=== PATIENT | female | born 1980 | race American Indian/Alaskan Native ===

== ENCOUNTER 2016-09-09 21:35 | Emergency (ER) | payer MEDICARE ==
[2016-09-10 01:31] LABS: Alanine Aminotransferase 20 units/L (7-56); Albumin 4.1 g/dL (3.9-5); Alkaline Phosphatase 88 units/L (35-129); Anion Gap 19 mmol/L; BUN/Creatinine Ratio 18.33; Bilirubin,Total 0.2 mg/dL (0.1-1.2); Blood Urea Nitrogen 11 mg/dL (7-17); Calcium 9.6 mg/dL (8.4-10.2); Carbon Dioxide 26 mmol/L (22-30); Chloride 97.3 mmol/L (98-107); Glucose 132 mg/dL (65-100); Lipase 23 units/L (13-60); Sodium 138 mmol/L (137-145); Total Protein 8.1 g/dL (6.3-8.2)
[2016-09-10 01:35] LABS: Basophils % (Auto) 0.2 % (0.0-1.8); Eosinophils % (Auto) 1.3 % (0.0-4.3); Mean Corpuscular HGB Conc 31 % (30-34); Platelet Count 205 K/mm3 (140-440); Red Blood Count 6.01 M/mm3 (3.65-5.03); White Blood Count 7.7 K/mm3 (4.5-11.0)
[2016-09-10 01:36] LABS: Hematocrit 39.8 % (30.3-42.9); Hemoglobin 12.2 gm/dl (10.1-14.3); Mean Corpuscular Hemoglobin 20 pg (28-32); Mean Corpuscular Volume 66 fl (79-97)
[2016-09-10] MEDS ORDERED: MORPHINE IV ONE (09:09)
[2016-09-10] MEDS ORDERED: ZOFRAN IV ONE (09:09)
[2016-09-10] MEDS ORDERED: NACL 0.9% 1000 ML 1,000 ML IV ONE (09:09)
--- NOTE | 2016-09-10 09:14 | Emergency Department Report ---
HPI - General Chief Complaint: Abdominal Pain Time Seen by Provider: 09/10/16 08:55 - HPI HPI: Room 24 The patient is 36-year-old female presenting with a chief complaint of abdominal pain. Patient states for the past 3 days she has had right-sided abdominal pain. Patient describes the pain as cramping in nature states that it was initially intermittent but has now become constant. Patient denies dysuria or hematuria. Patient admits to subjective fever and anorexia. Patient admits to nausea but denies vomiting. Patient currently gives her pain a score of 10/10 Location: Right abdomen Duration: 3 days Quality: Cramping Severity: 10/10 Modifying factors: [see above] Context: [see above] Mode of transportation: [not driving] ED Past Medical Hx - Past Medical History Previous Medical History?: Yes Hx Hypertension: Yes Hx Diabetes: Yes Hx Deep Vein Thrombosis: Yes Hx GERD: Yes Hx Arthritis: Yes Hx Seizures: Yes Hx Asthma: Yes Additional medical history: sleep apnea. Hypothyroidism. MORBID OBESITY - Surgical History Past Surgical History?: Yes Hx Cholecystectomy: Yes Additional Surgical History: R knee. carpal tunnel. hysterctomy. PARATHYROID - Family History Family history: no significant - Social History Smoking Status: Never Smoker Substance Use Type: Alcohol (occasional) - Medications Home Medications: Home Medications Medication Instructions Recorded Confirmed Last Taken Type Levothyroxine [Synthroid] 1 tab PO DAILY 03/16/14 01/27/16 01/27/16 History Metoprolol [Lopressor TAB] 1 tab PO DAILY 03/16/14 01/27/16 01/27/16 History metFORMIN [Glucophage] 1 tab PO BID 03/16/14 01/27/16 01/27/16 History Gabapentin [Neurontin] 600 mg PO Q8H #90 tablet 10/16/14 01/27/16 01/27/16 Rx Liraglutide [Victoza 2-Damion] 0.6 mg SUB-Q DAILY 01/27/16 01/27/16 01/27/16 History ALBUTEROL Inhaler [ProAir HFA 2 puff INHALATION PRN #1 inha 02/11/16 Unknown Rx Inhaler] Promethazine [Phenergan TAB] 25 mg PO Q6HR PRN #14 tab 09/10/16 Unknown Rx traMADol [Ultram] 50 mg PO Q6HR PRN #14 tablet 09/10/16 Unknown Rx ED Review of Systems ROS: Stated complaint: ABD PAIN Other details as noted in HPI Comment: All other systems reviewed and negative Constitutional: fever (subjective), other (anorexia). denies: chills Eyes: denies: eye pain, eye discharge, vision change ENT: denies: ear pain, throat pain Respiratory: denies: cough, shortness of breath, wheezing Cardiovascular: denies: chest pain, palpitations Endocrine: no symptoms reported Gastrointestinal: abdominal pain, nausea. denies: vomiting Genitourinary: denies: urgency, dysuria, discharge Musculoskeletal: denies: back pain, joint swelling, arthralgia Skin: denies: rash, lesions Neurological: denies: headache, weakness, paresthesias Psychiatric: denies: anxiety, depression Hematological/Lymphatic: denies: easy bleeding, easy bruising Physical Exam - Physical Exam Vital Signs: Vital Signs 09/09/16 09/10/16 09/10/16 22:20 02:46 06:23 Temperature 98.5 F Pulse Rate 116 H 83 83 Respiratory 20 18 18 Rate Blood Pressure 143/104 147/99 Blood Pressure 157/106 [Right] O2 Sat by Pulse 98 98 100 Oximetry 09/10/16 09/10/16 08:18 08:19 Temperature Pulse Rate 78 Respiratory 18 16 Rate Blood Pressure Blood Pressure 119/69 [Right] O2 Sat by Pulse 100 100 Oximetry Physical Exam: GENERAL: The patient is well-developed well-nourished female lying on stretcher not appearing to be in acute distress. [] HEENT: Normocephalic. Atraumatic. Extraocular motions are intact. Patient has moist mucous membranes. NECK: Supple. Trachea midline CHEST/LUNGS: Clear to auscultation. There is no respiratory distress noted. HEART/CARDIOVASCULAR: Regular. There is no tachycardia. There is no gallop rub or murmur. ABDOMEN: Abdomen is soft, with discomfort to palpation in the right upper and right lower quadrants. There is no rebound or guarding. Patient has normal bowel sounds. There is no abdominal distention. SKIN: There is no rash. There is no edema. There is no diaphoresis. NEURO: The patient is awake, alert, and oriented. The patient is cooperative. The patient has normal speech MUSCULOSKELETAL: There is no evidence of acute injury. ED Course Vital Signs 09/09/16 09/10/1609/10/17 22:20 02:46 06:23 Temperature 98.5 F Pulse Rate 116 H 83 83 Respiratory 20 18 18 Rate Blood Pressure 143/104 147/99 Blood Pressure 157/106 [Right] O2 Sat by Pulse 98 98 100 Oximetry 09/10/16 09/10/16 08:18 08:19 Temperature Pulse Rate 78 Respiratory 18 16 Rate Blood Pressure Blood Pressure 119/69 [Right] O2 Sat by Pulse 100 100 Oximetry ED Medical Decision Making - Lab Data Result diagrams: 09/10/16 00:54 09/10/16 00:54 Laboratory Tests 09/10/16 09/10/16 09/10/16 00:54 00:54 Unknown WBC 7.7 RBC 6.01 H Hgb 12.2 Hct 39.8 MCV 66 L MCH 20 L MCHC 31 RDW 18.0 H Plt Count 205 Lymph % (Auto) 30.9 Cross % (Auto) 7.7 H Eos % (Auto) 1.3 Baso % (Auto) 0.2 Lymph # 2.4 Cross # 0.6 Eos # 0.1 Baso # 0.0 Seg Neutrophils % 59.9 Seg Neutrophils # 4.6 Sodium 138 Potassium 4.0 Chloride 97.3 L Carbon Dioxide 26 Anion Gap 19 BUN 11 Creatinine 0.6 L Estimated GFR > 60 BUN/Creatinine Ratio 18.33 Glucose 132 H Calcium 9.6 Total Bilirubin 0.2 AST 18 ALT 20 Alkaline Phosphatase 88 Total Protein 8.1 Albumin 4.1 Albumin/Globulin Ratio 1.0 Lipase 23 Urine Color Yellow Urine Turbidity Clear Urine pH 5.0 Ur Specific Holmes 1.027 Urine Protein <15 mg/dl Urine Glucose (UA) Neg Urine Ketones Neg Urine Blood Neg Urine Nitrite Neg Urine Bilirubin Neg Urine Urobilinogen < 2.0 Ur Leukocyte Esterase Neg Urine WBC (Auto) 3.0 Urine RBC (Auto) 3.0 U Epithel Cells (Auto) 18.0 H Urine Mucus Few - Radiology Data Radiology results: report reviewed (CT abdomen and pelvis), image reviewed (CT abdomen and pelvis) CT abdomen and pelvis (read by radiologist)-no acute findings or interval changes. A small umbilical hernia containing fat are stable. Status post cholecystectomy and hysterectomy. The appendix is not definitely identified and there is no radiographic evidence of appendicitis. The uterus has been removed. There is are no pelvic masses or abnormal fluid collections. No free air seen. Small umbilical hernia containing fat is again noted, unchanged. - Differential Diagnosis appendicitis, ovarian cyst, gastritis Critical care attestation.: If time is entered above; I have spent that time in minutes in the direct care of this critically ill patient, excluding procedure time. ED Disposition Clinical Impression: Acute abdominal pain, Nausea Disposition: DISCHARGED TO HOME OR SELFCARE Is pt being admited?: No Does the pt Need Aspirin: No Condition: Stable Instructions: Abdominal Pain (ED) Additional Instructions: Return to the emergency department immediately should you develop worsening symptoms, fever, inability to tolerate food or liquid or any other concerns. 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 Please follow up with him for further evaluation) Time of Disposition: 11:38
[2016-09-10 09:58] LABS: Bilirubin,Urine NEG (Negative); Blood,Urine NEG (Negative); Ketones,Urine NEG (Negative); Leukocyte Esterase,Urine NEG (Negative); Mucus,Urine FEW /HPF; Nitrite,Urine NEG (Negative); Protein,Urine <15 mg/dL mg/dL (Negative); Urobilinogen,Urine < 2.0 mg/dL (<2.0)
--- NOTE | 2016-09-10 11:20 | Cat Scan Report ---
CT of the abdomen and pelvis with IV contrast. History: Right-sided abdominal pain. Findings: The study is severely limited by the patient's body habitus resulting in very poor quality images. Comparison is made to previous study on January 27, 2016. Within these limits, the spleen, pancreas, and kidneys appear normal. The liver is enlarged with no focal abnormalities. This finding is stable. The gallbladder has been removed. The appendix is not definite identified, but there is no radiographic evidence of appendicitis. The uterus is been removed. There no pelvic masses or abnormal fluid collections. No free air is seen. Small umbilical hernia containing fat is again noted, unchanged. Impression: No acute findings or interval changes with above noted significant technical limitations. A small umbilical hernia containing fat is stable. Status post cholecystectomy and hysterectomy.
[2016-09-10 11:29] VITALS: BP 114/73
== END 2016-09-10 11:38 | disposition home or self-care (01) ==
LOC: ED 21:35
DX: R10.31 Right lower quadrant pain (principal); R10.11 Right upper quadrant pain; R11.0 Nausea; I10 Essential (primary) hypertension; E11.9 Type 2 diabetes mellitus without complications; K21.9 Gastro-esophageal reflux disease without esophagitis; I82.409 Acute embolism and thrombosis of unspecified deep veins of unspecified lower extremity; M19.90 Unspecified osteoarthritis, unspecified site; J45.909 Unspecified asthma, uncomplicated; R56.9 Unspecified convulsions; E03.9 Hypothyroidism, unspecified; E66.01 Morbid (severe) obesity due to excess calories; Z90.710 Acquired absence of both cervix and uterus; G47.30 Sleep apnea, unspecified
CPT/HCPCS: 36415; 74177; 80053; 81001; 83690; 85025; 96361; 96374; 96375; 99284; J2270; J2405; J7030; Q9967

== ENCOUNTER 2018-02-14 10:24 | Emergency (ER) | payer MEDICARE ==
[2018-02-14 10:36] VITALS: BP 118/79
[2018-02-14 13:51] LABS: Hematocrit 33.4 % (30.3-42.9); Hemoglobin 10.5 gm/dl (10.1-14.3); Mean Corpuscular HGB Conc 31 % (30-34); Mean Corpuscular Hemoglobin 21 pg (28-32); Mean Corpuscular Volume 66 fl (79-97); Platelet Count 218 K/mm3 (140-440); Red Blood Count 5.05 M/mm3 (3.65-5.03); Red Cell Distribution Width 18.3 % (13.2-15.2)
[2018-02-14 13:52] LABS: Basophils % (Auto) 0.5 % (0.0-1.8); Eosinophils # (Auto) 0.2 K/mm3 (0.0-0.4); Lymphocytes # (Auto) 2.9 K/mm3 (1.2-5.4); Lymphocytes % (Auto) 32.5 % (13.4-35.0); Monocytes # (Auto) 0.5 K/mm3 (0.0-0.8); Monocytes % (Auto) 5.2 % (0.0-7.3)
--- NOTE | 2018-02-14 13:55 | Emergency Department Report ---
ED Rash HPI - HPI Chief Complaint: Skin Rash Stated Complaint: RASH ALL OVER Time Seen by Provider: 02/14/18 12:30 Duration: 2 Days Location: Chest, Upper Extremities, Lower Extremities Suspected Cause: Unknown Rash Symptoms: Yes Itching, No Facial Swelling, No Tongue/Oral Swelling, No Breathing Difficulties, No Choking Sensation, No Wheezing/Dyspnea, No Peeling, No Blistering, No Fever, No Lightheaded, No Malaise, No Myalgias Severity: mild Other History: This is a 37-year-old female nontoxic, well nourished in appearance, no acute signs of distress presents to the ED with c/o of diffuse rash that started 3 days. Patient describes rash as itching and painful after itching it. Patient denies any fever, chills, headache, sore throat, stiff neck , nausea, vomiting, chest pain, shortness of breathe, breathing, hoarseness, facial swelling, develop pain, numbness or tingling. Patient denies any allergies or significant past medical history. ED Review of Systems ROS: Stated complaint: RASH ALL OVER Other details as noted in HPI Constitutional: denies: chills, fever Eyes: denies: eye pain, eye discharge, vision change ENT: denies: ear pain, throat pain Respiratory: denies: cough, shortness of breath, wheezing Cardiovascular: denies: chest pain, palpitations Endocrine: no symptoms reported Gastrointestinal: denies: abdominal pain, nausea, diarrhea Genitourinary: denies: urgency, dysuria, discharge Musculoskeletal: denies: back pain, joint swelling, arthralgia Skin: rash. denies: lesions Neurological: denies: headache, weakness, paresthesias Psychiatric: denies: anxiety, depression Hematological/Lymphatic: denies: easy bleeding, easy bruising ED Past Medical Hx - Past Medical History Hx Hypertension: Yes Hx Diabetes: Yes Hx Deep Vein Thrombosis: Yes Hx GERD: Yes Hx Arthritis: Yes Hx Seizures: Yes Hx Asthma: Yes Additional medical history: sleep apnea. Hypothyroidism. MORBID OBESITY - Surgical History Hx Cholecystectomy: Yes Additional Surgical History: R knee. carpal tunnel. hysterctomy. PARATHYROID - Social History Smoking Status: Never Smoker Substance Use Type: Alcohol (occasional) - Medications Home Medications: Home Medications Medication Instructions Recorded Confirmed Last Taken Type Levothyroxine [Synthroid] 1 tab PO DAILY 1001/27/16 01/27/16 History Metoprolol [Lopressor TAB] 1 tab PO DAILY 03/16/14 01/27/16 01/27/16 History metFORMIN [Glucophage] 1 tab PO BID 03/16/14 01/27/16 01/27/16 History Gabapentin [Neurontin] 600 mg PO Q8H #90 tablet 10/16/14 01/27/16 01/27/16 Rx Liraglutide [Victoza 2-Damion] 0.6 mg SUB-Q DAILY 01/27/16 01/27/16 01/27/16 History ALBUTEROL Inhaler (OR & NICU) 2 puff INHALATION PRN #1 inha 02/11/16 Unknown Rx [ProAir HFA Inhaler] Promethazine [Phenergan TAB] 25 mg PO Q6HR PRN #14 tab 09/10/16 Unknown Rx traMADol [Ultram] 50 mg PO Q6HR PRN #14 tablet 09/10/16 Unknown Rx Prednisone [predniSONE 10 mg 10 mg PO .TAPER #1 tab.ds.pk 02/14/18 Unknown Rx (6-Day Pack, 21 Tabs)] cephALEXin [Keflex] 500 mg PO Q8HR #21 cap 02/14/18 Unknown Rx diphenhydrAMINE [Benadryl CAP] 25 mg PO Q6HR PRN #20 capsule 02/14/18 Unknown Rx Rash Exam - Exam General: Vital signs noted. No distress. Alert and acting appropriately. HEENT: No Periorbital Edema, No Conjuctival Injection, No Chemosis, No Perioral Edema, No Tongue Edema, No Uvular Edema, No Compromised Airway, No Drooling Lungs: Yes Good Air Exchange (Normal Breath Sounds), No Wheezes, No Ronchi, No Stridor, No Cough, No Labored Respirations, No Retractions, No Use of Accessory Muscles, No Other Abnormal Lung Sounds Heart: Yes Regular, No Murmur Skin: Yes Maculopapular Rash, No Urticarial Rash, No Morbilliform rash, No Bulla (e), No Excoriations, No Weeping, No Tenderness, No Erythema, No Edema, No Encrustations Other: Positive: Abdomen Normal, Neurologic Normal, Musculoskeletal Normal ED Course Vital Signs 02/14/18 10:33 Temperature 97.9 F Pulse Rate 78 Respiratory 20 Rate Blood Pressure 118/79 O2 Sat by Pulse 96 Oximetry - Reevaluation(s) Reevaluation #1: 02/14/18 13:57 Patient is speaking in full sentences with no signs of distress noted. ED Medical Decision Making - Lab Data Result diagrams: 02/14/18 13:30 02/14/18 13:30 - Medical Decision Making This is a 37-year-old female that presents with maculopapular rash to unknown source. Patient is stable was examined by me. There is no facial swelling. No angioedema. There is no cellulitis. No hoarseness. Labs obtained and unremarkable. no tonsillitis. I will treat patient empirically with Keflex. Patient is discharged also with prednisone and Benadryl. Patient was referred to Follow-up with a primary care doctor in 3-5 days or if symptoms worsen and continue return to emergency room as soon as possible. At time of discharge, the patient does not seem toxic or ill in appearance. No acute signs of distress noted. Patient agrees to discharge treatment plan of care. No further questions noted by the patient. Critical care attestation.: If time is entered above; I have spent that time in minutes in the direct care of this critically ill patient, excluding procedure time. ED Disposition Clinical Impression: Maculopapular rash, generalized Disposition: DC-01 TO HOME OR SELFCARE Is pt being admited?: No Does the pt Need Aspirin: No Condition: Stable Instructions: Acute Rash (ED), Diphenhydramine (By mouth) Additional Instructions: Follow-up with a primary care/telephone installer doctor in 3-5 days or if symptoms worsen and continue return to emergency room as soon as possible. Prescriptions: cephALEXin [Keflex] 500 mg PO Q8HR #21 cap diphenhydrAMINE [Benadryl CAP] 25 mg PO Q6HR PRN #20 capsule PRN Reason: Itching Prednisone [predniSONE 10 mg (6-Day Pack, 21 Tabs)] 10 mg PO .TAPER #1 tab.ds.pk Referrals: PRIMARY CARE, [Primary Care Provider] - 3-5 Days LATOYA LASSITER MD [Staff Physician] - 3-5 Days [facility] [Outside] - 3-5 Days [facility] [Outside] - 3-5 Days Forms: Work/School Release Form(ED)
[2018-02-14 13:59] LABS: INR 0.94 (0.87-1.13)
[2018-02-14 14:00] LABS: Partial Thromboplastin Time 34.2 Sec. (24.2-36.6)
[2018-02-14 14:06] LABS: BUN/Creatinine Ratio 10; Blood Urea Nitrogen 6 mg/dL (7-17); Hemolysis Index 7
== END 2018-02-14 14:22 | disposition home or self-care (01) ==
LOC: ED 10:24
DX: R21 Rash and other nonspecific skin eruption (principal); I10 Essential (primary) hypertension; E11.9 Type 2 diabetes mellitus without complications; K21.9 Gastro-esophageal reflux disease without esophagitis; M19.90 Unspecified osteoarthritis, unspecified site; J45.909 Unspecified asthma, uncomplicated; E03.9 Hypothyroidism, unspecified; E66.01 Morbid (severe) obesity due to excess calories; Z86.718 Personal history of other venous thrombosis and embolism; Z90.49 Acquired absence of other specified parts of digestive tract
CPT/HCPCS: 36415; 80048; 85025; 85610; 85730; 99283

== ENCOUNTER 2018-03-18 10:53 | Emergency (ER) | payer MEDICARE ==
[2018-03-18 15:26] LABS: BUN/Creatinine Ratio 22; Blood Urea Nitrogen 13 mg/dL (7-17); Calcium 8.9 mg/dL (8.4-10.2); Hemolysis Index 9
--- NOTE | 2018-03-18 16:45 | XRay Report ---
FINAL REPORT EXAM: XR CHEST ROUTINE 2V HISTORY: cough TECHNIQUE: Frontal and lateral chest radiographs. PRIORS: 03/13/2018. FINDINGS: The cardiomediastinal silhouette is normal. No focal consolidation. A nonspecific focal rounded opacity projects over the medial aspect of the right lower lung measuring 2.5 centimeters. No pleural effusion. No pneumothorax. No acute osseous abnormality. IMPRESSION: Nonspecific rounded nodular opacity projecting over the right lower lung may represent a pulmonary nodule versus object outside of the patient. Recommend further evaluation with chest CT.
[2018-03-18 17:15] LABS: Hematocrit 33.6 % (30.3-42.9); Hemoglobin 10.7 gm/dl (10.1-14.3); Mean Corpuscular HGB Conc 32 % (30-34); Mean Corpuscular Hemoglobin 21 pg (28-32); Mean Corpuscular Volume 67 fl (79-97); Platelet Count 239 K/mm3 (140-440); Red Blood Count 5.05 M/mm3 (3.65-5.03); Red Cell Distribution Width 18.3 % (13.2-15.2)
[2018-03-18 17:30] LABS: INR 0.92 (0.87-1.13)
[2018-03-18 17:31] LABS: Partial Thromboplastin Time 32.6 Sec. (24.2-36.6)
--- NOTE | 2018-03-18 17:50 | Emergency Department Report ---
ED Shortness of Breath HPI - General Chief Complaint: Dyspnea/Respdistress Stated Complaint: SOB/COUGHING/CONGESTION/WHEEZING Time Seen by Provider: 03/18/18 14:09 Source: patient Mode of arrival: Ambulatory Limitations: No Limitations - History of Present Illness Initial Comments: 35-year-old female with history of asthma presents to ED with cough, congestion , shortness of breath. Patient states symptoms began last week. States she was seen in ED 6 days ago given prescription for antibiotics, albuterol, prednisone Dosepak. Patient states she still having shortness of breath and productive cough. Patient denies fever. MD Complaint: shortness of breath, cough -: week(s) (1) Severity: moderate Improves With: bronchodilators Worsens With: lying flat, exertion, coughing Known History Of: asthma Context: recent URI Associated Symptoms: sputum production Treatments Prior to Arrival: bronchodilator - Related Data Home Medications Medication Instructions Recorded Confirmed Last Taken Levothyroxine [Synthroid] 1 tab PO DAILY 03/16/14 01/27/16 01/27/16 Metoprolol [Lopressor TAB] 1 tab PO DAILY 03/16/14 01/27/16 01/27/16 metFORMIN [Glucophage] 1 tab PO BID 03/16/14 01/27/16 01/27/16 Liraglutide [Victoza 2-Fatimah] 0.6 mg SUB-Q DAILY 01/27/16 01/27/16 01/27/16 Previous Rx's Medication Instructions Recorded Last Taken Type Gabapentin [Neurontin] 600 mg PO Q8H #90 tablet 10/16/14 01/27/16 Rx ALBUTEROL Inhaler (OR & NICU) 2 puff INHALATION PRN #1 inha 02/11/16 Unknown Rx [ProAir HFA Inhaler] Promethazine [Phenergan TAB] 25 mg PO Q6HR PRN #14 tab 09/10/16 Unknown Rx traMADol [Ultram] 50 mg PO Q6HR PRN #14 tablet 09/10/16 Unknown Rx Prednisone [predniSONE 10 mg 10 mg PO .TAPER #1 tab.ds.pk 02/14/18 Unknown Rx (6-Day Pack, 21 Tabs)] cephALEXin [Keflex] 500 mg PO Q8HR #21 cap 02/14/18 Unknown Rx diphenhydrAMINE [Benadryl CAP] 25 mg PO Q6HR PRN #20 capsule 02/14/18 Unknown Rx ALBUTEROL Inhaler(NF) [VENTOLIN 2 puff IH Q4-6H PRN #1 inha 03/13/18 Unknown Rx Inhaler(NF)] ALBUTEROL NEB's [Proventil 0.083% 2.5 mg IH TID PRN #1 box 03/13/18 Unknown Rx NEBS] Azithromycin [Zithromax Z-FATIMAH] 250 mg PO DAILY #6 tablet 03/13/18 Unknown Rx Benzonatate [Tessalon Perle] 100 mg PO Q6H PRN #20 capsule 03/13/18 Unknown Rx Ibuprofen [Motrin] 600 mg PO Q8H PRN #20 tablet 03/13/18 Unknown Rx Prednisone [predniSONE 10 mg 10 mg PO .TAPER #1 tab.ds.pk 03/13/18 Unknown Rx (6-Day Pack, 21 Tabs)] Benzonatate [Tessalon Perles] 100 mg PO Q8HR PRN #20 capsule 03/18/18 Unknown Rx Allergies Allergy/AdvReac Type Severity Reaction Status Date / Time pneumococcal vaccine Allergy Swelling Verified 03/18/18 11:15 [From Pneumovax 23] ED Review of Systems ROS: Stated complaint: SOB/COUGHING/CONGESTION/WHEEZING Other details as noted in HPI Comment: All other systems reviewed and negative Constitutional: denies: chills, fever Respiratory: cough, shortness of breath, wheezing ED Past Medical Hx - Past Medical History Previous Medical History?: Yes Hx Hypertension: Yes Hx Diabetes: Yes Hx Deep Vein Thrombosis: Yes Hx GERD: Yes Hx Arthritis: Yes Hx Seizures: Yes Hx Asthma: Yes Additional medical history: sleep apnea. Hypothyroidism. MORBID OBESITY - Surgical History Past Surgical History?: Yes Hx Cholecystectomy: Yes Additional Surgical History: R knee. carpal tunnel. hysterctomy. PARATHYROID - Social History Smoking Status: Never Smoker Substance Use Type: Alcohol - Medications Home Medications: Home Medications Medication Instructions Recorded Confirmed Last Taken Type Levothyroxine [Synthroid] 1 tab PO DAILY 03/16/14 01/27/16 01/27/16 History Metoprolol [Lopressor TAB] 1 tab PO DAILY 03/16/14 01/27/16 01/27/16 History metFORMIN [Glucophage] 1 tab PO BID 03/16/14 01/27/16 01/27/16 History Gabapentin [Neurontin] 600 mg PO Q8H #90 tablet 10/16/14 01/27/16 01/27/16 Rx Liraglutide [Victoza 2-Fatimah] 0.6 mg SUB-Q DAILY 01/27/16 01/27/16 01/27/16 History ALBUTEROL Inhaler (OR & NICU) 2 puff INHALATION PRN #1 inha 02/11/16 Unknown Rx [ProAir HFA Inhaler] Promethazine [Phenergan TAB] 25 mg PO Q6HR PRN #14 tab 09/10/16 Unknown Rx traMADol [Ultram] 50 mg PO Q6HR PRN #14 tablet 09/10/16 Unknown Rx Prednisone [predniSONE 10 mg 10 mg PO .TAPER #1 tab.ds.pk 02/14/18 Unknown Rx (6-Day Pack, 21 Tabs)] cephALEXin [Keflex] 500 mg PO Q8HR #21 cap 02/14/18 Unknown Rx diphenhydrAMINE [Benadryl CAP] 25 mg PO Q6HR PRN #20 capsule 02/14/18 Unknown Rx ALBUTEROL Inhaler(NF) [VENTOLIN 2 puff IH Q4-6H PRN #1 inha 03/13/18 Unknown Rx Inhaler(NF)] ALBUTEROL NEB's [Proventil 0.083% 2.5 mg IH TID PRN #1 box 03/13/18 Unknown Rx NEBS] Azithromycin [Zithromax Z-FATIMAH] 250 mg PO DAILY #6 tablet 03/13/18 Unknown Rx Benzonatate [Tessalon Perle] 100 mg PO Q6H PRN #20 capsule 03/13/18 Unknown Rx Ibuprofen [Motrin] 600 mg PO Q8H PRN #20 tablet 03/13/18 Unknown Rx Prednisone [predniSONE 10 mg 10 mg PO .TAPER #1 tab.ds.pk 03/13/18 Unknown Rx (6-Day Pack, 21 Tabs)] Benzonatate [Tessalon Perles] 100 mg PO Q8HR PRN #20 capsule 03/18/18 Unknown Rx ED Physical Exam - General Limitations: No Limitations General appearance: alert, in no apparent distress, obese - Head Head exam: Present: atraumatic, normocephalic - Eye Eye exam: Present: normal appearance - ENT ENT exam: Present: mucous membranes moist - Neck Neck exam: Present: normal inspection - Respiratory Respiratory exam: Present: normal lung sounds bilaterally. Absent: respiratory distress, wheezes - Cardiovascular Cardiovascular Exam: Present: regular rate, normal rhythm - GI/Abdominal GI/Abdominal exam: Present: soft. Absent: tenderness - Extremities Exam Extremities exam: Present: normal inspection - Neurological Exam Neurological exam: Present: alert, oriented X3 - Psychiatric Psychiatric exam: Present: normal affect, normal mood - Skin Skin exam: Present: warm, dry, intact, normal color ED Course Vital Signs 03/18/18 11:10 Temperature 98.4 F Pulse Rate 88 Respiratory 20 Rate Blood Pressure 140/81 O2 Sat by Pulse 98 Oximetry ED Medical Decision Making - Lab Data Result diagrams: 03/18/18 14:49 03/18/18 14:49 - EKG Data -: EKG Interpreted by Ca EKG shows normal: sinus rhythm, axis, intervals, QRS complexes, ST-T waves Rate: normal - EKG Data Interpretation: no acute changes - Radiology Data Radiology results: report reviewed, image reviewed FINAL REPORT EXAM: XR CHEST ROUTINE 2V HISTORY: cough TECHNIQUE: Frontal and lateral chest radiographs. PRIORS: 03/13/2018. FINDINGS: The cardiomediastinal silhouette is normal. No focal consolidation. A nonspecific focal rounded opacity projects over the medial aspect of the right lower lung measuring 2.5 centimeters. No pleural effusion. No pneumothorax. No acute osseous abnormality. IMPRESSION: Nonspecific rounded nodular opacity projecting over the right lower lung may represent a pulmonary nodule versus object outside of the patient. Recommend further evaluation with chest CT. - Medical Decision Making 38-year-old morbidly obese female with history of asthma presents to ER with URI symptoms, shortness of breath. Patient seen last week for same. Given prescription for antibiotics, prednisone, albuterol. Today patient in no acute distress. Exam unremarkable. O2 sats normal. EKG and troponin normal. No signs of ischemia present. D-dimer negative. WBCs are elevated, but this is likely due to the fact that the patient has been on steroid taper. Chest x-ray shows nodule versus object outside of patient. This is not seen on x-ray from a few days ago. At any rate patient advised to follow up as an outpatient for CT scan. Will DC at this time. Patient given return precautions - Differential Diagnosis pulm edema, pleural effusion, asthma, bronchitis, pneumonia Critical care attestation.: If time is entered above; I have spent that time in minutes in the direct care of this critically ill patient, excluding procedure time. ED Disposition Clinical Impression: Bronchitis Disposition: TO HOME OR SELFCARE Is pt being admited?: No Condition: Stable Instructions: Acute Bronchitis (ED) Prescriptions: Benzonatate [Tessalon Perles] 100 mg PO Q8HR PRN #20 capsule PRN Reason: Cough Referrals: PRIMARY CARE, [Primary Care Provider] - 3-5 Days Time of Disposition: 18:01
[2018-03-18 18:20] LABS: Basophils % (Manual) 0 % (0.0-1.8); RBC Morphology Normal; Total Cells Counted 100
[2018-03-18 18:37] VITALS: BP 142/80
== END 2018-03-18 18:37 | disposition home or self-care (01) ==
LOC: ED 10:53
DX: J40 Bronchitis, not specified as acute or chronic (principal); I10 Essential (primary) hypertension; E11.9 Type 2 diabetes mellitus without complications; K21.9 Gastro-esophageal reflux disease without esophagitis; M19.90 Unspecified osteoarthritis, unspecified site; G47.30 Sleep apnea, unspecified; F10.920 Alcohol use, unspecified with intoxication, uncomplicated; E20.9 Hypoparathyroidism, unspecified; E66.01 Morbid (severe) obesity due to excess calories; Z90.710 Acquired absence of both cervix and uterus; Z90.49 Acquired absence of other specified parts of digestive tract; Z88.7 Allergy status to serum and vaccine; Z86.718 Personal history of other venous thrombosis and embolism
CPT/HCPCS: 36415; 71046; 80048; 83880; 84484; 84703; 85007; 85025; 85379; 85610; 85730; 93005; 93010; 99284

== ENCOUNTER 2020-05-15 10:24 | Emergency (ER) | payer MEDICARE ==
[2020-05-15 10:34] VITALS: BP 149/101
--- NOTE | 2020-05-15 11:43 | Vascular Lab Report ---
DUPLEX DOPPLER LOWER EXTREMITY VEINS, RIGHT INDICATION / CLINICAL INFORMATION: dvt. TECHNIQUE: Duplex doppler imaging was performed through the veins of the right lower extremity using venous comp ression and other maneuvers. COMPARISON: None available. FINDINGS: RIGHT COMMON FEMORAL VEIN: Negative. RIGHT FEMORAL VEIN: Negative. The inferior aspect of the superior official femoral vein was difficult to visualize. RIGHT POPLITEAL VEIN: Negative. RIGHT CALF VEINS: Negative. ADDITIONAL FINDINGS: None. IMPRESSION: 1. No sonographic evidence for DVT in the right lower extremity within the limits of this study. A se gment of the superficial femoral vein is difficult to visualize. Signer Name: Kevin Mace MD Signed: 05/15/2020 11:39 AM Workstation Name: [id number]
[2020-05-15 12:34] LABS: Basophils % (Auto) 0.2 % (0.0-1.8); Eosinophils # (Auto) 0.1 K/mm3 (0.0-0.4); Eosinophils % (Auto) 1.4 % (0.0-4.3); Hematocrit 35.6 % (30.3-42.9); Hemoglobin 11.6 gm/dl (10.1-14.3); Lymphocytes # (Auto) 2.7 K/mm3 (1.2-5.4); Lymphocytes % (Auto) 26.5 % (13.4-35.0); Mean Corpuscular HGB Conc 33 % (30-34); Monocytes # (Auto) 0.5 K/mm3 (0.0-0.8); Monocytes % (Auto) 4.8 % (0.0-7.3); Platelet Count 232 K/mm3 (140-440); Red Blood Count 5.52 M/mm3 (3.65-5.03); Red Cell Distribution Width 19.2 % (13.2-15.2)
[2020-05-15 12:42] LABS: Mean Corpuscular Volume 65 fl (79-97)
[2020-05-15 12:57] LABS: Alanine Aminotransferase 21 units/L (7-56); Albumin 4.2 g/dL (3.9-5); Blood Urea Nitrogen 8 mg/dL (7-17); Calcium 10.2 mg/dL (8.4-10.2); Hemolysis Index 9
[2020-05-15 13:01] LABS: INR 1.07 (0.87-1.13)
[2020-05-15 13:05] LABS: BUN/Creatinine Ratio 13
[2020-05-15 13:07] LABS: Partial Thromboplastin Time 41.3 Sec. (24.2-36.6)
--- NOTE | 2020-05-15 13:31 | Emergency Department Report ---
HPI - General Chief Complaint: Extremity Injury, Lower Time Seen by Provider: 05/15/20 13:27 - HPI HPI: This is a 40-year-old female presents to the emergency department with a complaint of a 1 week history of right lower extremity pain. Patient says that the pain starts behind her right knee and radiates up towards the thigh and hip. She denies any fall, injury, trauma, or any known inciting event. She denies any skin color change or swelling. Patient has a history of arthritis, asthma, previous DVT and PE on Eliquis with compliance, diabetes, GERD, hypertension, morbid obesity. The patient also says that she saw her primary care physician, Dr. Jocy Hicks, and was told that she also has peripheral neuropathy. She has been on gabapentin and "a muscle relaxer." The patient is ambulatory and walks with a cane at baseline. No recent travel. She denies any fever, chest pain, shortness of breath, nausea, vomiting or diaphoresis. ED Past Medical Hx - Past Medical History Previous Medical History?: Yes Hx Hypertension: Yes Hx Diabetes: Yes Hx Deep Vein Thrombosis: Yes Hx Pulmonary Embolism: Yes (2019) Hx GERD: Yes Hx Arthritis: Yes Hx Seizures: Yes Hx Asthma: Yes Additional medical history: sleep apnea. Hypothyroidism. MORBID OBESITY - Surgical History Past Surgical History?: Yes Hx Cholecystectomy: Yes Additional Surgical History: R knee. carpal tunnel. hysterctomy. PARATHYROID - Social History Smoking Status: Never Smoker Substance Use Type: None - Medications Home Medications: Home Medications Medication Instructions Recorded Confirmed Last Taken Type Levothyroxine [Synthroid] 1 tab PO DAILY 03/16/14 01/27/16 01/27/16 History Metoprolol [Lopressor TAB] 1 tab PO DAILY 03/16/14 01/27/16 01/27/16 History metFORMIN [Glucophage] 1 tab PO BID 03/16/14 01/27/16 01/27/16 History Gabapentin [Neurontin] 600 mg PO Q8H #90 tablet 10/16/14 01/27/16 01/27/16 Rx Liraglutide [Victoza 2-Damion] 0.6 mg SUB-Q DAILY 01/27/16 01/27/16 01/27/16 History Albuterol Mdi (or & Nicu Only) 2 puff INHALATION PRN #1 inha 02/11/16 Unknown Rx [ProAir HFA Inhaler] Promethazine [Phenergan TAB] 25 mg PO Q6HR PRN #14 tab 09/10/16 Unknown Rx traMADoL [Ultram] 50 mg PO Q6HR PRN #14 tablet 09/10/16 Unknown Rx Prednisone [predniSONE 10 mg 10 mg PO .TAPER #1 tab.ds.pk 02/14/18 Unknown Rx (6-Day Pack, 21 Tabs)] cephALEXin [Keflex] 500 mg PO Q8HR #21 cap 02/14/18 Unknown Rx diphenhydrAMINE [Benadryl CAP] 25 mg PO Q6HR PRN #20 capsule 02/14/18 Unknown Rx ALBUTEROL Inhaler(NF) [VENTOLIN 2 puff IH Q4-6H PRN #1 inha 03/13/18 Unknown Rx Inhaler(NF)] ALBUTEROL NEB's [Proventil 0.083% 2.5 mg IH TID PRN #1 box 03/13/18 Unknown Rx NEBS] Azithromycin [Zithromax Z-DAMION] 250 mg PO DAILY #6 tablet 03/13/18 Unknown Rx Benzonatate [Tessalon Perle] 100 mg PO Q6H PRN #20 capsule 03/13/18 Unknown Rx Ibuprofen [Motrin] 600 mg PO Q8H PRN #20 tablet 03/13/18 Unknown Rx Prednisone [predniSONE 10 mg 10 mg PO .TAPER #1 tab.ds.pk 03/13/18 Unknown Rx (6-Day Pack, 21 Tabs)] Benzonatate [Tessalon Perles] 100 mg PO Q8HR PRN #20 capsule 03/18/18 Unknown Rx ED Review of Systems ROS: Stated complaint: RT LEG PAIN/SOB Other details as noted in HPI Comment: All other systems reviewed and negative Constitutional: denies: chills, fever Respiratory: denies: cough, shortness of breath Cardiovascular: denies: chest pain, palpitations, edema Gastrointestinal: denies: abdominal pain, vomiting Musculoskeletal: arthralgia, myalgia. denies: back pain Skin: denies: rash, lesions Neurological: denies: numbness, paresthesias Physical Exam - Physical Exam Vital Signs: Vital Signs 05/15/20 10:32 Temperature 98.2 F Pulse Rate 103 H Respiratory 18 Rate Blood Pressure 149/101 [Left] O2 Sat by Pulse 98 Oximetry Physical Exam: GENERAL: The patient is well-developed well-nourished. HENT: Normocephalic. Atraumatic. Patient has moist mucous membranes. EYES: Extraocular motions are intact. NECK: Supple. Trachea is midline. CHEST/LUNGS: Clear to auscultation. There is no respiratory distress noted. HEART/CARDIOVASCULAR: Regular. There is no tachycardia. ABDOMEN: Abdomen is soft, nontender. Patient has normal bowel sounds. Morbidly obese habitus. SKIN: Skin is warm and dry. NEURO: The patient is awake, alert, and oriented. The patient is cooperative. The patient has no focal neurologic deficits. Normal speech. MUSCULOSKELETAL: There is some mild reproducible tenderness to palpation to the posterior right knee. +2/4 dorsalis pedis pulse to the affected right lower extremity. There is no limitation range of motion. ED Course Vital Signs 05/15/20 10:32 Temperature 98.2 F Pulse Rate 103 H Respiratory 18 Rate Blood Pressure 149/101 [Left] O2 Sat by Pulse 98 Oximetry - Reevaluation(s) Reevaluation #1: 05/15/20 16:22 Lab Results 05/15/20 05/15/20 05/15/20 Range/Units 12:10 12:10 12:10 WBC 10.1 (4.5-11.0) K/mm3 RBC 5.52 H (3.65-5.03) M/mm3 Hgb 11.6 (10.1-14.3) gm/dl Hct 35.6 (30.3-42.9) % MCV 65 L (79-97) fl MCH 21 L (28-32) pg MCHC 33 (30-34) % RDW 19.2 H (13.2-15.2) % Plt Count 232 (140-440) K/mm3 Lymph % (Auto) 26.5 (13.4-35.0) % [place] % (Auto) 4.8 (0.0-7.3) % Eos % (Auto) 1.4 (0.0-4.3) % Baso % (Auto) 0.2 (0.0-1.8) % Lymph # (Auto) 2.7 (1.2-5.4) K/mm3 [place] # (Auto) 0.5 (0.0-0.8) K/mm3 Eos # (Auto) 0.1 (0.0-0.4) K/mm3 Baso # (Auto) 0.0 (0.0-0.1) K/mm3 Seg Neutrophils % 67.1 (40.0-70.0) % Seg Neutrophils # 6.8 (1.8-7.7) K/mm3 PT 13.7 (12.2-14.9) Sec. INR 1.07 (0.87-1.13) APTT 41.3 H (24.2-36.6) Sec. Sodium 138 (137-145) mmol/L Potassium 4.1 (3.6-5.0) mmol/L Chloride 99.3 (98-107) mmol/L Carbon Dioxide 30 (22-30) mmol/L Anion Gap 13 mmol/L BUN 8 (7-17) mg/dL Creatinine 0.6 (0.6-1.2) mg/dL Estimated GFR > 60 ml/min BUN/Creatinine Ratio 13 % Glucose 131 H (65-100) mg/dL Calcium 10.2 (8.4-10.2) mg/dL Total Bilirubin 0.30 (0.1-1.2) mg/dL AST 20 (5-40) units/L ALT 21 (7-56) units/L Alkaline Phosphatase 96 (35-129) units/L Total Protein 8.4 H (6.3-8.2) g/dL Albumin 4.2 (3.9-5) g/dL Albumin/Globulin Ratio 1.0 % ED Medical Decision Making - Lab Data Result diagrams: 05/15/20 12:10 05/15/20 12:10 - Radiology Data Radiology results: report reviewed DUPLEX DOPPLER LOWER EXTREMITY VEINS, RIGHT INDICATION / CLINICAL INFORMATION: dvt. TECHNIQUE: Duplex doppler imaging was performed through the veins of the right lower extremity using venous compression and other maneuvers. COMPARISON: None available. FINDINGS: RIGHT COMMON FEMORAL VEIN: Negative. RIGHT FEMORAL VEIN: Negative. The inferior aspect of the superior official femoral vein was difficult to visualize. RIGHT POPLITEAL VEIN: Negative. RIGHT CALF VEINS: Negative. ADDITIONAL FINDINGS: None. IMPRESSION: 1. No sonographic evidence for DVT in the right lower extremity within the limits of this study. A segment of the superficial femoral vein is difficult to visualize. - Medical Decision Making This patient presents to the emergency department with a complaint of some right lower extremity pain that starts behind the right knee and radiates up towards the thigh. The patient does have a history of peripheral neuropathy and sometimes has pain running down from her hip and buttock towards the knee. The patient is morbidly obese but there is no obvious or unilateral swelling. On top of the list, the patient is on Eliquis and says that she has been compliant with her medications. She is neurovascularly intact. The patient had a right lower extremity venous Doppler ultrasound done through triage that does not show any sonographic evidence for acute DVT. Her labs have been unremarkable throughout her ED course. Vital signs have been reassuring including being afebrile. The patient is ambulatory and there is no restriction to range of motion. For all these reasons the patient appears safe for discharge home at this time. She has been instructed to follow-up with her PCP and has also been given a referral for a local orthopedist. Critical Care Time: No Critical care attestation.: If time is entered above; I have spent that time in minutes in the direct care of this critically ill patient, excluding procedure time. ED Disposition Clinical Impression: Right leg pain Peripheral neuropathy Qualifiers: Peripheral neuropathy type: polyneuropathy, unspecified Qualified Code(s): G62.9 - Polyneuropathy, unspecified Disposition: - TO HOME OR SELFCARE Is pt being admited?: No Condition: Stable Instructions: Peripheral Neuropathy Additional Instructions: Please take all of your medications as prescribed. Follow-up with your primary care physician in the next few days. I have given you a referral for a local orthopedist, Dr. Rios, to follow-up regarding your right leg pain. Return to the emergency department with any worsening of your symptoms, new or concerning symptoms not addressed during this current emergency department visit, or with any acute distress. Referrals: JOCY HICKS MD [Primary Care Provider] - 3-5 Days JDUY RIOS MD [Staff Physician] - 3-5 Days Time of Disposition: 13:31
== END 2020-05-15 13:51 | disposition home or self-care (01) ==
LOC: ED 10:24
DX: G62.9 Polyneuropathy, unspecified (principal); M79.604 Pain in right leg; I10 Essential (primary) hypertension; E11.9 Type 2 diabetes mellitus without complications; K21.9 Gastro-esophageal reflux disease without esophagitis; M19.90 Unspecified osteoarthritis, unspecified site; J45.909 Unspecified asthma, uncomplicated; E03.9 Hypothyroidism, unspecified; E66.01 Morbid (severe) obesity due to excess calories; Z86.69 Personal history of other diseases of the nervous system and sense organs; Z90.49 Acquired absence of other specified parts of digestive tract; Z68.45 Body mass index [BMI] 70 or greater, adult; Z88.8 Allergy status to other drugs, medicaments and biological substances; Z79.899 Other long term (current) drug therapy; Z90.710 Acquired absence of both cervix and uterus; Z98.890 Other specified postprocedural states
CPT/HCPCS: 36415; 80053; 85025; 85610; 85730

== ENCOUNTER 2020-05-26 21:10 | Emergency (ER) | payer MEDICARE ==
[2020-05-26] MEDS ORDERED: SODIUM CHLORIDE 0.9% 500 ML 500 ML IV ONE (21:31)
[2020-05-26 21:49] LABS: Basophils % (Auto) 0.4 % (0.0-1.8); Eosinophils % (Auto) 0.7 % (0.0-4.3); Hematocrit 36.6 % (30.3-42.9); Hemoglobin 11.3 gm/dl (10.1-14.3); Lymphocytes # (Auto) 1.2 K/mm3 (1.2-5.4); Lymphocytes % (Auto) 19.8 % (13.4-35.0); Mean Corpuscular HGB Conc 31 % (30-34); Monocytes # (Auto) 0.5 K/mm3 (0.0-0.8); Monocytes % (Auto) 8.1 % (0.0-7.3); Platelet Count 188 K/mm3 (140-440); Red Cell Distribution Width 18.9 % (13.2-15.2)
[2020-05-26 21:50] LABS: Mean Corpuscular Volume 67 fl (79-97)
[2020-05-26 22:07] LABS: INR 1.05 (0.87-1.13)
[2020-05-26 22:11] LABS: Alanine Aminotransferase 25 units/L (7-56); Albumin 3.8 g/dL (3.9-5); Blood Urea Nitrogen 8 mg/dL (7-17); Calcium 9.4 mg/dL (8.4-10.2); Hemolysis Index 13
--- NOTE | 2020-05-26 22:11 | XRay Report ---
CHEST 2 VIEWS INDICATION / CLINICAL INFORMATION: Possible sepsis. COMPARISON: 03/18/18. FINDINGS: SUPPORT DEVICES: None. HEART / MEDIASTINUM: The heart size and pulmonary vasculature are normal. LUNGS / PLEURA: No significant pulmonary or pleural abnormality. No pneumothorax. ADDITIONAL FINDINGS: No significant additional findings. IMPRESSION: No acute abnormality or significant change. Signer Name: Larry Carroll MD Signed: 05/26/2020 10:06 PM Workstation Name: [id number]
[2020-05-26 22:21] LABS: BUN/Creatinine Ratio 11
[2020-05-27] MEDS ORDERED: SODIUM CHLORIDE 0.9% 500 ML 500 ML IV ONE (03:09)
[2020-05-27] MEDS ORDERED: ACETAMINOPHEN 500 MG TAB PO ONE (03:11)
[2020-05-27] MEDS ORDERED: DEXAMETHASONE 4 MG TAB PO ONE (05:36)
--- NOTE | 2020-05-27 05:41 | Emergency Department Report ---
HPI <CECELIA REYES - Last Filed: 05/27/20 07:11> - HPI HPI: This is a 40-year-old -[place] female presents to the emergency department with a complaint of a 2-day history of fever, chills, body aches, shortness of breath and some chest/chest wall discomfort. The chest discomfort mostly occurs, or worsens, when she is coughing. It is a mixed dry and productive cough. Patient says "I thought it was just my asthma because I had some wheezing, but then I found out that I had a fever." She has not taken anything for her symptoms prior to presentation today. She has a past medical history including arthritis, asthma, previous DVT and PE on Eliquis for anticoagulation, diabetes, GERD, hypertension, hypothyroidism, sleep apnea. No recent travel or sick contacts at home. No known exposure to anyone with COVID- 19. She denies any tobacco or illicit drug use. <CARMEN MARTINEZ - Last Filed: 05/27/20 12:27> - General Chief Complaint: Fever Time Seen by Provider: 05/27/20 05:36 ED Past Medical Hx <CECELIA REYES - Last Filed: 05/27/20 07:11> - Past Medical History Previous Medical History?: Yes Hx Hypertension: Yes Hx Diabetes: Yes Hx Deep Vein Thrombosis: Yes Hx Pulmonary Embolism: Yes (2019) Hx GERD: Yes Hx Arthritis: Yes Hx Seizures: Yes Hx Asthma: Yes Additional medical history: sleep apnea. Hypothyroidism. MORBID OBESITY - Surgical History Past Surgical History?: Yes Hx Cholecystectomy: Yes Additional Surgical History: R knee. carpal tunnel. hysterctomy. PARATHYROID - Social History Smoking Status: Never Smoker Substance Use Type: None <CARMEN MARTINEZ - Last Filed: 05/27/20 12:27> - Medications Home Medications: Home Medications Medication Instructions Recorded Confirmed Last Taken Type Levothyroxine [Synthroid] 1 tab PO DAILY 03/16/14 01/27/16 01/27/16 History Metoprolol [Lopressor TAB] 1 tab PO DAILY 03/16/14 01/27/16 01/27/16 History metFORMIN [Glucophage] 1 tab PO BID 03/16/14 01/27/16 01/27/16 History Gabapentin [Neurontin] 600 mg PO Q8H #90 tablet 05/01/27/16 01/27/16 Rx Liraglutide [Victoza 2-Damion] 0.6 mg SUB-Q DAILY 01/27/16 01/27/16 01/27/16 History Albuterol Mdi (or & Nicu Only) 2 puff INHALATION PRN #1 inha 02/11/16 Unknown Rx [ProAir HFA Inhaler] Promethazine [Phenergan TAB] 25 mg PO Q6HR PRN #14 tab 09/10/16 Unknown Rx traMADoL [Ultram] 50 mg PO Q6HR PRN #14 tablet 09/10/16 Unknown Rx Prednisone [predniSONE 10 mg 10 mg PO .TAPER #1 tab.ds.pk 02/14/18 Unknown Rx (6-Day Pack, 21 Tabs)] cephALEXin [Keflex] 500 mg PO Q8HR #21 cap 02/14/18 Unknown Rx diphenhydrAMINE [Benadryl CAP] 25 mg PO Q6HR PRN #20 capsule 02/14/18 Unknown Rx ALBUTEROL Inhaler(NF) [VENTOLIN 2 puff IH Q4-6H PRN #1 inha 03/13/18 Unknown Rx Inhaler(NF)] Azithromycin [Zithromax Z-DAMION] 250 mg PO DAILY #6 tablet 03/13/18 Unknown Rx Benzonatate [Tessalon Perle] 100 mg PO Q6H PRN #20 capsule 03/13/18 Unknown Rx Ibuprofen [Motrin] 600 mg PO Q8H PRN #20 tablet 03/13/18 Unknown Rx Prednisone [predniSONE 10 mg 10 mg PO .TAPER #1 tab.ds.pk 03/13/18 Unknown Rx (6-Day Pack, 21 Tabs)] ALBUTEROL NEB's [Proventil 0.083% 2.5 mg IH TID PRN #1 box 05/27/20 Unknown Rx NEBS] Benzonatate [Tessalon Perles] 100 mg PO Q8HR PRN #20 capsule 05/27/20 Unknown Rx ED Review of Systems ROS: Stated complaint: SOB, FEVER, CHEST PAIN Other details as noted in HPI <CECELIA REYES - Last Filed: 05/27/20 07:11> ROS: Stated complaint: SOB, FEVER, CHEST PAIN Other details as noted in HPI Comment: All other systems reviewed and negative Constitutional: chills, fever Eyes: denies: eye pain, vision change ENT: denies: ear pain, throat pain Respiratory: cough, shortness of breath Cardiovascular: chest pain. denies: edema Gastrointestinal: denies: abdominal pain, vomiting Genitourinary: denies: dysuria, discharge Musculoskeletal: myalgia. denies: joint swelling Skin: denies: rash, lesions Neurological: denies: numbness, paresthesias <CARMEN MARTINEZ - Last Filed: 05/27/20 12:27> Physical Exam - Physical Exam Vital Signs: Vital Signs 05/26/20 05/27/20 05/27/20 21:26 04:57 04:58 Temperature 102.6 F H Pulse Rate 118 H 112 H Respiratory 20 Rate Blood Pressure 211/94 Blood Pressure 132/75 [Right] O2 Sat by Pulse 94 97 97 Oximetry 05/27/20 05/27/20 05:30 06:02 Temperature 99.3 F Pulse Rate 113 H 100 H Respiratory Rate Blood Pressure Blood Pressure 115/67 104/63 [Right] O2 Sat by Pulse 96 96 Oximetry <CECELIA REYES - Last Filed: 05/27/20 07:11> - Physical Exam Vital Signs: Vital Signs 05/26/20 05/27/20 05/27/20 21:26 04:57 04:58 Temperature 102.6 F H Pulse Rate 118 H 112 H Respiratory 20 Rate Blood Pressure 211/94 Blood Pressure 132/75 [Right] O2 Sat by Pulse 94 97 97 Oximetry 05/27/20 05:30 Temperature 99.3 F Pulse Rate 113 H Respiratory Rate Blood Pressure Blood Pressure 115/67 [Right] O2 Sat by Pulse 96 Oximetry Physical Exam: GENERAL: The patient is well-developed well-nourished. HENT: Normocephalic. Atraumatic. Patient has moist mucous membranes. EYES: Extraocular motions are intact. NECK: Supple. Trachea is midline. CHEST/LUNGS: Clear to auscultation. No tachypnea or accessory muscle use. There is no respiratory distress noted. HEART/CARDIOVASCULAR: Regular. There is mild tachycardia. There is no murmur. ABDOMEN: Abdomen is soft, nontender. Patient has normal bowel sounds. Morbidly obese habitus. SKIN: Skin is warm and dry. NEURO: The patient is awake, alert, and oriented. The patient is cooperative. The patient has no focal neurologic deficits. Normal speech. MUSCULOSKELETAL: There is no tenderness or deformity. There is no limitation range of motion. <CARMEN MARTINEZ - Last Filed: 05/27/20 12:27> ED Course Vital Signs 05/26/20 05/27/20 05/27/20 21:26 04:57 04:58 Temperature 102.6 F H Pulse Rate 118 H 112 H Respiratory 20 Rate Blood Pressure 211/94 Blood Pressure 132/75 [Right] O2 Sat by Pulse 94 97 97 Oximetry 05/27/20 05/27/20 05:30 06:02 Temperature 99.3 F Pulse Rate 113 H 100 H Respiratory Rate Blood Pressure Blood Pressure 115/67 104/63 [Right] O2 Sat by Pulse 96 96 Oximetry - Reevaluation(s) Reevaluation #1: 05/27/20 07:12 I accepted patient as a signout from Dr. Costa. Patient was pending a lab test, troponin. Patient had already had a chest x-ray that showed no pneumonia. She also underwent ambulatory pulse ox which revealed an oxygen level of 96% on room air after ambulation. Her troponin resulted as negative. Patient feels improved and feels comfortable with the plan for discharge. We did discuss strict return precautions including worsening fever, worsening shortness of breath worsening chest pain. Patient is encouraged to return for reevaluation if she feels worse. Patient's vitals were noted to have a pulse oxygenation of 97% while I was in the room speaking with the patient. <CECELIA REYES - Last Filed: 05/27/20 07:11> Vital Signs 05/26/20 05/27/20 05/27/20 21:26 04:57 04:58 Temperature 102.6 F H Pulse Rate 118 H 112 H Respiratory 20 Rate Blood Pressure 211/94 Blood Pressure 132/75 [Right] O2 Sat by Pulse 94 97 97 Oximetry 05/27/20 05:30 Temperature 99.3 F Pulse Rate 113 H Respiratory Rate Blood Pressure Blood Pressure 115/67 [Right] O2 Sat by Pulse 96 Oximetry <CARMEN MARTINEZ S - Last Filed: 05/27/20 12:27> ED Medical Decision Making - Lab Data Result diagrams: 05/26/20 21:34 05/26/20 21:34 <CECELIA REYES - Last Filed: 05/27/20 07:11> - Lab Data Result diagrams: 05/26/20 21:34 05/26/20 21:34 - EKG Data -: EKG Interpreted by Me EKG shows normal: sinus rhythm, axis, intervals, QRS complexes (Q waves to the septal leads), ST-T waves Rate: tachycardia (108 bpm) - EKG Data When compared to previous EKG there are: no significant change Interpretation: unchanged when compared t (03/22/18) - Radiology Data Radiology results: image reviewed interpreted by me: Chest x-ray does not show any acute process. There are no pleural effusions, obvious pneumonia and there is no pneumothorax. No significant cardiomegaly. - Medical Decision Making This patient presents to the emergency department with a complaint of a 2-day history of some wheezing, coughing, fever, chills, body aches, chest discomfort and shortness of breath. EKG does not show any morphology consistent with ST elevation myocardial infarction or any dysrhythmia. Chest x-ray does not show any pneumonia, pleural effusions, focal consolidation, or any other acute process. Patient's labs have been mostly unremarkable including CBC and metabolic panel. On examination the patient has clear lung sounds to auscultation and does not appear in any respiratory or acute distress. The patient admits that, at this time, the wheezing has currently resolved. The patient had a walking/exertional pulse ox test. Her heart rate went up briefly but came back down when she sat down. The oxygen got as low as 93% but immediately went back up to 96%. I have ordered for the patient received a dose of Decadron and Toradol, as well as have a troponin drawn. If the troponin is negative, the patient will be dis charged home to follow-up with her primary care physician and seek outpatient COVID-19 testing. She will be given a prescription for an albuterol nebulizer medication and Tessalon Perles for her cough. <CARMEN MARTINEZ - Last Filed: 05/27/20 12:27> Critical care attestation.: If time is entered above; I have spent that time in minutes in the direct care of this critically ill patient, excluding procedure time. <CECELIA REYES - Last Filed: 05/27/20 07:11> Critical Care Time: No Critical care attestation.: If time is entered above; I have spent that time in minutes in the direct care of this critically ill patient, excluding procedure time. <CARMEN MARTINEZ - Last Filed: 05/27/20 12:27> ED Disposition <CECELIA REYES - Last Filed: 05/27/20 07:11> Is pt being admited?: No Time of Disposition: 05:48 <CARMEN MARTINEZ - Last Filed: 05/27/20 12:27> Clinical Impression: Suspected COVID-19 virus infection, Viral upper respiratory illness, Atypical chest pain Disposition: DC- TO HOME OR SELFCARE Condition: Stable Instructions: COVID-19, Nonspecific Chest Pain, Adult, Viral Respiratory Infection, Prevent the Spread of COVID-19 if You Are Sick - CDC, Chest Pain (ED) Additional Instructions: Please follow-up with a primary care physician in the next few days. You appear to have a viral upper respiratory infection. Given this current schultz demic, there is a high suspicion that you could have COVID-19. Unfortunately, I am unable to test you for COVID-19 through the emergency department. Please isolate/quarantine your self away from anybody who is immunocompromised, elderly, or chronically ill/debilitated. Please seek outpatient COVID-19 testing. This can be done at some primary care offices, some urgent cares, and there should be a listing of testing facilities through the [place] [facility]. Return to the emergency department with any worsening of your symptoms, new or concerning symptoms not addressed during this current emergency department visit, or with any acute distress. Prescriptions: ALBUTEROL NEB's [Proventil 0.083% NEBS] 2.5 mg IH TID PRN #1 box PRN Reason: Wheezing Benzonatate [Tessalon Perles] 100 mg PO Q8HR PRN #20 capsule PRN Reason: Cough Referrals: PRIMARY CARE, [Primary Care Provider] - 2-3 Days
[2020-05-27] MEDS ORDERED: KETOROLAC 30 MG/1 ML INJ IV ONE (05:48)
[2020-05-27 06:03] VITALS: BP 104/63
== END 2020-05-27 07:50 | disposition home or self-care (01) ==
LOC: ED 21:10
DX: J06.9 Acute upper respiratory infection, unspecified (principal); Z20.828 Contact with and (suspected) exposure to other viral communicable diseases; B97.89 Other viral agents as the cause of diseases classified elsewhere; R07.89 Other chest pain; I10 Essential (primary) hypertension; E11.9 Type 2 diabetes mellitus without complications; K21.9 Gastro-esophageal reflux disease without esophagitis; M19.91 Primary osteoarthritis, unspecified site; J45.909 Unspecified asthma, uncomplicated; R56.9 Unspecified convulsions; Z90.49 Acquired absence of other specified parts of digestive tract; Z90.710 Acquired absence of both cervix and uterus; Z98.890 Other specified postprocedural states; Z88.8 Allergy status to other drugs, medicaments and biological substances
CPT/HCPCS: 36415; 71046; 80053; 82140; 82805; 84484; 85025; 85610; 87040; 93005; 96374; 99284; J1885; J7040; J8540